=== PATIENT | female | born 1965 | race Caucasian/White ===

== ENCOUNTER 2022-06-28 09:40 | Emergency (ER) | payer OTHER ==
[~2022-06-28] VITALS: Ht 162.6 cm; Wt 95.3 kg
[2022-06-28] MEDS ORDERED: NITROGLYCERIN 0.4 MG SL TAB SL STA (09:47)
[2022-06-28 10:00] LABS: BASOPHILS % (AUTO) 1.5 % (0.0-5.0); EOSINOPHILS % (AUTO) 13.4 % (0.0-8.0); HEMATOCRIT 39.6 % (36-48); LYMPHOCYTES % (AUTO) 29.1 % (21.0-51.0); MEAN CORPUSCULAR HEMOGLOBIN 28.2 pg (27.0-33.0); MEAN CORPUSCULAR HGB CONC 32.6 g/dL (32.0-36.0); MEAN CORPUSCULAR VOLUME 86.7 fL (79-99); MONOCYTES % (AUTO) 9.2 % (3.0-13.0); NEUTROPHILS % (AUTO) 46.3 % (40.0-77.0); PLATELET COUNT (AUTO) 275 K/uL (130-400); RED BLOOD CELL COUNT(AUTO) 4.57 MIL/uL (4.00-5.50); RED CELL DISTRIBUTION WIDTH 12.8 % (11.0-15.5); WHITE BLOOD COUNT (AUTO) 8.7 K/uL (4.8-10.8)
[2022-06-28 10:18] LABS: POTASSIUM 3.7 mmol/L (3.5-5.1)
[2022-06-28 10:19] VITALS: BP 138/71
[2022-06-28 10:23] LABS: ALBUMIN 4.1 g/dL (3.5-5.0); TOTAL PROTEIN, SERUM 7.9 g/dL (6.0-8.3)
== END 2022-06-28 13:02 | disposition home or self-care (01) ==
LOC: EDH 09:40
DX: R07.89 Other chest pain (principal); Z90.89 Acquired absence of other organs; Z98.890 Other specified postprocedural states
CPT/HCPCS: 36415; 71045; 80053; 83880; 84484; 85025; 93005

== ENCOUNTER 2022-07-30 06:20 | Day surgery (SDC) | payer OTHER ==
[~2022-07-30] VITALS: Ht 162.6 cm; Wt 93.0 kg
[2022-07-30] VITALS (18 sets, daily range): BP systolic 116–175; BP diastolic 62–79
[2022-07-30 07:36] LABS: BASOPHILS % (AUTO) 1.5 % (0.0-5.0); EOSINOPHILS % (AUTO) 6.6 % (0.0-8.0); HEMATOCRIT 40.7 % (36-48); MEAN CORPUSCULAR HGB CONC 31.9 g/dL (32.0-36.0); MEAN CORPUSCULAR VOLUME 87.7 fL (79-99); NEUTROPHILS % (AUTO) 50.6 % (40.0-77.0); PLATELET COUNT (AUTO) 256 K/uL (130-400); RED BLOOD CELL COUNT(AUTO) 4.64 MIL/uL (4.00-5.50); RED CELL DISTRIBUTION WIDTH 13.1 % (11.0-15.5); WHITE BLOOD COUNT (AUTO) 7.1 K/uL (4.8-10.8)
[2022-07-30] MEDS ORDERED: 0.9%NACL 1000ML 1,000 ML IV ONE (07:53)
[2022-07-30 08:04] LABS: CREATININE 1.3 mg/dL (0.5-1.5); MAGNESIUM 2.2 mg/dL (1.80-2.40)
[2022-07-30 08:16] LABS: B-TYPE NATRIURETIC PEPTIDE 48 pg/mL (0-100)
[2022-07-30] MEDS ORDERED: EPINEPHRINE PF 1MG (1:1,000) 1 MG in 0.9% NACL 250ML 250 ML IVP SCH (08:30)
[2022-07-30] MEDS ORDERED: LEVO175C2 PO ×2 (09:51→09:52)
== END 2022-07-30 10:30 | disposition home or self-care (01) ==
LOC: DAH 06:20
PROVIDERS: ATTEND Internal Medicine Cardiovascular Disease
DX: Z01.818 Encounter for other preprocedural examination (principal); I51.7 Cardiomegaly; R94.31 Abnormal electrocardiogram [ECG] [EKG]
CPT/HCPCS: 83735; 80048; 83880; 85025; 82948; 36415; 93005 ×4; 96365; 96366; A4223 ×3; J7030; J0171; J7050; A4215; A4222; A4221; A4663; A4216; A4606

== ENCOUNTER → 2022-08-04 | Outpatient (CLI) | payer OTHER ==
[~2022-08-04] MED LIST: LEVO175C2 PO; REGADENOSON 0.4 MG/5 ML PF SYG IVP SCH
== END | disposition home or self-care (01) ==
LOC: SHCH 09:20
PROVIDERS: ATTEND Internal Medicine Cardiovascular Disease
DX: R07.9 Chest pain, unspecified (principal)
CPT/HCPCS: 78452; 96374; 93017; J2785; A9500 ×2